=== PATIENT | male | born 1975 | race Two or more races ===

== ENCOUNTER 2022-05-13 19:02 | Inpatient (IN) | payer SELFPAY ==
[~2022-05-13] VITALS: Ht 162.6 cm; Wt 52.6 kg
--- NOTE | 2022-05-13 19:03 | NUR ---
BIBRA[address] FOR POS OD. NOTED PINPOINT PUPILS. NARCAN 2 MG AND ZOFRAN 4 MG GIVEN AT THE FIELD.
[2022-05-13] MEDS ORDERED: NALOXONE PREFILLED SYRINGE 2 MG/2 ML SYRINGE ONE ×3 (19:07→19:19)
[2022-05-13] MEDS ORDERED: IV NS 0.9% 1,000 ML BAG IV ONE ×2 (19:30→22:00)
--- NOTE | 2022-05-13 20:11 | NUR ---
ELECTRIC ORGAN INSPECTOR AND REPAIRER AT PT'S BEDSIDE
--- NOTE | 2022-05-13 20:45 | NUR ---
ATTEMPTED TO COLLECT URINE; NO URINE AT THIS TIME, WILL F/U
[2022-05-13 20:59] LABS: CALCIUM, SERUM 8.7 mg/dL (8.5-10.1); CARBON DIOXIDE 21 mmol/L (21-32); CHLORIDE 108 mmol/L (98-107); CREATININE 0.9 mg/dL (0.6-1.3); GLUCOSE 118 mg/dL (74-106); POTASSIUM 3.2 mmol/L (3.5-5.1); SODIUM SERUM 141 mmol/L (136-145); UREA NITROGEN, BLOOD 18 mg/dL (7-18)
[2022-05-13 21:03] LABS: ALANINE AMINOTRANSFERASE 15 U/L (12-78); ALBUMIN 3.1 g/dL (3.4-5.0); ALKALINE PHOSPHATASE 77 U/L (46-116); ASPARTATE AMINOTRANSFERASE 19 U/L (15-37); BILIRUBIN,DIRECT 0.1 mg/dL (0.0-0.2); BILIRUBIN,TOTAL 0.5 mg/dL (0.2-1.0); TOTAL PROTEIN, SERUM 7.4 g/dL (6.4-8.2)
[2022-05-13 21:08] LABS: ACETAMINOPHEN < 0 ug/ml (10-30); ALCOHOL, BLOOD < 3 mg/dL (0-0)
--- NOTE | 2022-05-13 21:24 | NUR ---
URINE COLLECTED AND SENT TO LAB. SMEARER AT PT'S BEDSIDE
[2022-05-13 21:52] LABS: BILIRUBIN,URINE NEGATIVE (NEGATIVE); COLOR,URINE YELLOW (YELLOW); LEUKOCYTE ESTERASE ,URINE NEGATIVE (NEGATIVE); NITRITE, URINE NEGATIVE (NEGATIVE); PH,URINE 7.5 (5.0-8.0); PROTEIN,URINE 100 mg/dl (NEGATIVE); UGLUCOSE NEGATIVE (NEGATIVE)
[2022-05-13] MEDS ORDERED: VANCOMYCIN 1 GM in IV D5W 250 ML IV ONE (22:00)
[2022-05-13] MEDS ORDERED: CEFEPIME 1 GM in IV D5W 50 ML IV ONE (22:00)
[2022-05-13] MEDS ORDERED: VANCOMYCIN 1 GM VIAL ONE (22:25)
[2022-05-13] MEDS ORDERED: CEFEPIME 1 GM VIAL ONE (22:25)
--- NOTE | 2022-05-13 22:25 | NUR ---
COVID SWAB DONE AND SENT TO LAB
[2022-05-13 22:34] LABS: WHITE BLOOD COUNT (AUTO) 8.7 K/uL (4.3-11.0)
[2022-05-13 22:35] LABS: HEMATOCRIT 24 % (39-51); HEMOGLOBIN 7.1 g/dL (13.5-17.5); MEAN CORPUSCULAR VOLUME 54 fL (80-96); RED BLOOD CELL COUNT(AUTO) 4.52 MIL/uL (4.5-6.0)
[2022-05-13 22:36] LABS: MEAN CORPUSCULAR HGB CONC 29 g/dl (31.0-36.0); PLATELET COUNT (AUTO) 846 K/uL (150-450)
[2022-05-13 22:38] LABS: LYMPHOCYTES % (AUTO) 7.2 % (20.0-44.0); MONOCYTES % (AUTO) 3.1 % (2.0-12.0); NEUTROPHILS % (AUTO) 89.5 % (43.0-81.0)
[2022-05-13 22:39] LABS: BASOPHILS % (AUTO) 0.2 % (0.0-2.0); LYMPHOCYTES # (AUTO) 0.6 K/uL (0.8-4.8); MONOCYTES # (AUTO) 0.3 K/uL (0.1-1.30); NEUTROPHILS # (AUTO) 7.8 K/uL (1.8-8.9)
[2022-05-13] MEDS ORDERED: LORAZEPAM INJ 2 MG/ML VIAL IV PRN (23:30)
[2022-05-13] MEDS ORDERED: Z GUARD REMEDY 4 OZ OINT TP PRN (23:30)
[2022-05-13] MEDS ORDERED: ACETAMINOPHEN 325 MG TABLET PO PRN (23:30)
[2022-05-13] MEDS ORDERED: MAGNESIUM HYDROXIDE 30 ML UDC PO PRN (23:30)
[2022-05-13] MEDS ORDERED: MAG HYDROX/AL HYDROX/SIMETH 30 ML UDC PO PRN (23:30)
[2022-05-13] MEDS ORDERED: ONDANSETRON HCL/PF 4 MG/2 ML VIAL IVP PRN (23:30)
--- NOTE | 2022-05-14 00:47 | NUR ---
MRSA SWAB COLLECTED AND SENT TO LAB. PATIENT'S BELONGINGS LIST DONE.
--- NOTE | 2022-05-14 01:03 | NUR ---
ROOM 116-1
--- NOTE | 2022-05-14 01:08 | NUR ---
REPORT GIVEN TO COREY JAVED RN FOR DEREK
--- NOTE | 2022-05-14 02:00 | NUR ---
PLYWOOD LAYUP LINE BACK FEEDERWAISTLINE JOINER LOCKSTITCH NOTE PT TRANSPORTED VIA GURNEY TO UNIT AT THIS TIME. PT ADMITTED TO TELE UNDER CIRCULAR CLERK DIYA FOR ADMITTING DX OF OPIATE OVERDOSE. A/O X1. PT ON 3 LPM VIA NC, O2 SAT 100%. NO SOB OR S/S OF RESPIRATORY DISTRESS. BREATHING EVEN AND UNLABORED. ON EXTERNAL PUBLICITY AGENT READING SR 74 BPM. SKIN NOTED WITH L HIP, L HAND, AND RIGHT KNEE ABRASIONS. IV ACCESS RFA 18 GAUGE, INTACT AND PATENT, RUNNING NS @125 ML/HR. ORIENTED PT TO UNIT, STAFF, AND ROOM. ALL BELONGINGS ACCOUNTED FOR AND SIGNED PT BELONGINGS LIST. SAFETY PRECAUTIONS IN PLACE. BED IN LOWEST LOCKED POSITION, HOB ELEVATED, SIDE RAILS UP X3, AND CALL LIGHT AND TABLE WITHIN REACH. ALL NEEDS MET AT THIS TIME.
--- NOTE | 2022-05-14 02:03 | NUR ---
PT TRANSFERRED TO TELLO ROOM 116-1 VIA ACLS PROTOCOL. VSS.
[2022-05-14 02:35] VITALS: BP 136/85
[2022-05-14] MEDS: PANTOPRAZOLE 40 MG VIAL IV SCH ×2 (02:43→08:21)
[2022-05-14] MEDS: IV NS 0.9% 1,000 ML IV PRN ×2 (02:43→18:24)
--- NOTE | 2022-05-14 02:43 | NUR ---
RN NOTE PT COMPLAINED OF NAUSEA. ADMINISTERED ZOFRAN 4 MG FOR NAUSEA ORDERED. PROVIDED PT WITH EMESIS BAG. ALL NEEDS MET AT THIS TIME.
[2022-05-14 04:00] VITALS: BP_SYST 126; BP_SYST 154; BP_DIAS 82; BP_DIAS 98
--- NOTE | 2022-05-14 06:59 | NUR ---
PROPERTY AND CASUALTY INSURANCE AGENT CLOSING NOTE PT RESTING IN BED. A/O X1. PT ON 3 LPM VIA NC, O2 SAT 100%. NO SOB OR S/S OF RESPIRATORY DISTRESS. BREATHING EVEN AND UNLABORED. ON EXTERNAL SPIRITUAL ADVISOR READING SR 74 BPM. IV ACCESS RFA 18 GAUGE, INTACT AND PATENT, RUNNING NS @125 ML/HR. DUE MEDS GIVEN ORDERED. SAFETY PRECAUTIONS IN PLACE AT ALL TIMES. BED IN LOWEST LOCKED POSITION, HOB ELEVATED, SIDE RAILS UP X3, AND CALL LIGHT AND TABLE WITHIN REACH. ALL NEEDS MET AT THIS TIME AND WILL ENDORSE TO ONCOMING NURSE.
--- NOTE | 2022-05-14 07:30 | NUR ---
RN OPENING NOTE PATIENT IS IN BED ASLEEP BUT EASILY AROUSABLE, A&O X 1. WITH O2 VIA NASAL CANNULA AT 3LPM, SATTING AT 100%. SINUS RHYTHM ON LINK TRAINER MAINTENANCE MAN. WITH RIGHT FOREARM GAUGE 18, INFUSING WITH NS AT 125 ML/HR. DENIES PAIN, BREATHING UNLABORED. BED IS LOCKED IN LOWEST POSITION, 3 SIDE RAILS UP, CALL LIGHT WITHIN REACH. WILL CONTINUE TO MONITOR THROUGHOUT SHIFT.
[2022-05-14 09:13] LABS: BASOPHILS % (AUTO) 0.2 % (0.0-2.0); HEMATOCRIT 25 % (39-51); LYMPHOCYTES # (AUTO) 1.1 K/uL (0.8-4.8); LYMPHOCYTES % (AUTO) 8.9 % (20.0-44.0); MEAN CORPUSCULAR HGB CONC 28 g/dl (31.0-36.0); MEAN CORPUSCULAR VOLUME 54 fL (80-96); MONOCYTES # (AUTO) 0.8 K/uL (0.1-1.30); MONOCYTES % (AUTO) 6.8 % (2.0-12.0); NEUTROPHILS % (AUTO) 84.1 % (43.0-81.0); PLATELET COUNT (AUTO) 842 K/uL (150-450); RED BLOOD CELL COUNT(AUTO) 4.59 MIL/uL (4.5-6.0); WHITE BLOOD COUNT (AUTO) 11.9 K/uL (4.3-11.0)
[2022-05-14 09:24] LABS: CALCIUM, SERUM 8.6 mg/dL (8.5-10.1); CREATININE 0.8 mg/dL (0.6-1.3); MAGNESIUM 2.7 mg/dL (1.8-2.4); PHOSPHORUS 3.8 mg/dL (2.5-4.9); POTASSIUM 3.2 mmol/L (3.5-5.1)
--- NOTE | 2022-05-14 09:35 | NUR ---
SS consult requested for homelessness and opiate drug abuse. SW will follow up at a later time.
--- NOTE | 2022-05-14 10:05 | NUR ---
SS received consult for homelessness. Pt. is alert and oriented x1, and is not interviewable. SW will follow-up once pt. is more stable.
[2022-05-14 12:15] VITALS: BP 141/72
[2022-05-14 14:25] LABS: LYMPHOCYTES % (MANUAL) 8 % (16-48); MONOCYTES % (MANUAL) 6 % (0-11.0); NEUTROPHILS % (MANUAL) 86 (42-76)
--- NOTE | 2022-05-14 18:45 | NUR ---
RN CLOSING NOTE PATIENT IS RESTING COMFORTABLY IN BED AND REMAINED STABLE THROUGHOUT THE SHIFT. DENIES PAIN AND BREATHING IS UNLABORED. IV LINE REMAINS INTACT AND PATENT. ALL HOSPITAL PRECAUTIONS IN PLACE. WILL ENDORSE TO LOSS PREVENTION REPRESENTATIVE NURSE.
--- NOTE | 2022-05-14 19:31 | NUR ---
RN NOTES RECEIVED CARE OF PATIENT FROM AM NURSE, PATIENT IN BED, ALERT TO NAME ONLY, OPENS EYES, LETHARGIC. PATIENT ON O2 THERAPY VIA NC AT 3 L/MIN, O2 SAT 99%. PATIENT ON TELE MONITOR SHOWING NSR WITH HR OF 75, NO DISTRESS NOTED ON PATIENT. WITH RIGHT FOREARM GAUGE 18, INFUSING WITH NS AT 125 ML/HR. SAFETY MEASURES INITIATED. BED IS LOCKED IN LOWEST POSITION, 3 SIDE RAILS UP, CALL LIGHT WITHIN REACH. WILL CONTINUE TO MONITOR THROUGHOUT SHIFT.
[2022-05-14 20:00] VITALS: BP 92/52
[2022-05-15] VITALS: BP 134/94
[2022-05-15] MEDS: IV NS 0.9% 1,000 ML IV PRN (03:37)
[2022-05-15 04:00] VITALS: BP 134/87
--- NOTE | 2022-05-15 06:49 | NUR ---
RN CLOSING NOTES WILL ENDORSE CARE OF PATIENT TO AM NURSE, PATIENT IN BED, SLEEPING, WAKES UP TO NAME. NO SIGNIFICANT CHANGES TO PATIENT'S CONDITION THROUGHOUT SHIFT, NO SIGNIFICANT FINDINGS UPON ALL NURSING ASSESSMENTS. ALL PATIENT'S NEEDS ATTENDED TO, ALL DUE MEDS GIVEN. SAFETY MEASURES KEPT IN PLACE. WILL ENDORSE CARE OF PATIENT TO AM NURSE FOR DEREK.
--- NOTE | 2022-05-15 07:30 | NUR ---
RN OPENING NOTE PATIENT IS IN BED, ASLEEP, BUT EASILY AROUSABLE. WITH OXYGEN VIA NASAL CANNULA T 3L/MIN, SATTING AT 95%. SINUS RHYTHM ON BELT POLISHER. WITH RIGHT FOREARM IV LINE GAUGE 18 INFUSING WITH NS AT 125 ML/HR. NOT IN ANY FORM OF DISTRESS, BREATHING UNLABORED. ALL HOSPITAL PRECAUTIONS IN PLACE, BED IS LOCKED IN LOWEST POSITION, 3 SIDE RAILS UP, CALL LIGHT WITHIN REACH. WILL CONTINUE TO MONITOR THROUGHOUT SHIFT.
--- NOTE | 2022-05-15 07:30 | NUR ---
RN OPENING NOTE PATIENT IS IN BED, ON SEMI-BUTCHER'S POSITION, OBTUNDED. WITH TRACHEOSTOMY TO MECHANICAL VENTILATOR WITH THE FOLLOWING SETTINGS: AC MODE, RR 20, TV 450, FIO2 AT 50%, PEEP 5. WITHP EG TUBE INTACT INFUSING WITH JEVITY 1.2 AT 60 ML/HR. WITH LEFT UPPER ARM MIDLINE INFUSING WITH NS AT 75 ML/HR. BREATHING IN LABOR AND NOT IN ANY FORM OF DISTRESS. BED IS LOCKED IN LOWEST POSITION, 3 SIDE RAILS UP, CALL LIGHT WITHIN REACH. WILL CONTINUE TO MONITOR THROUGHOUT SHIFT.
[2022-05-15] MEDS: PANTOPRAZOLE 40 MG TABLET.DR PO SCH (09:19)
[2022-05-15 12:20] VITALS: BP 134/84
[2022-05-15 15:20] LABS: MEAN CORPUSCULAR HGB CONC 29 g/dl (31.0-36.0)
[2022-05-15 15:38] LABS: ALBUMIN 2.6 g/dL (3.4-5.0); BILIRUBIN,TOTAL 0.3 mg/dL (0.2-1.0); CALCIUM, SERUM 8.1 mg/dL (8.5-10.1); CREATININE 0.6 mg/dL (0.6-1.3); MAGNESIUM 2.3 mg/dL (1.8-2.4); PHOSPHORUS 2.8 mg/dL (2.5-4.9); POTASSIUM 3.3 mmol/L (3.5-5.1)
[2022-05-15 16:03] LABS: BASOPHILS # (AUTO) 0.1 K/uL (0.0-0.2); BASOPHILS % (AUTO) 0.6 % (0.0-2.0); HEMATOCRIT 22 % (39-51); LYMPHOCYTES # (AUTO) 1.1 K/uL (0.8-4.8); LYMPHOCYTES % (AUTO) 12.4 % (20.0-44.0); MEAN CORPUSCULAR VOLUME 54 fL (80-96); MONOCYTES # (AUTO) 0.6 K/uL (0.1-1.30); MONOCYTES % (AUTO) 7.1 % (2.0-12.0); NEUTROPHILS # (AUTO) 7.1 K/uL (1.8-8.9); NEUTROPHILS % (AUTO) 79.9 % (43.0-81.0); PLATELET COUNT (AUTO) 724 K/uL (150-450); RED BLOOD CELL COUNT(AUTO) 4.09 MIL/uL (4.5-6.0); WHITE BLOOD COUNT (AUTO) 8.9 K/uL (4.3-11.0)
--- NOTE | 2022-05-15 16:12 | NUR ---
SS consult: SS Consult requested for possible overdose. The pt. is a 46-year-old male patient who came into ED due to possible overdose per EMR. Per EMR, pt. was found unresponsive in the street Per EMR, pt. was administered 2 mg of Narcan by paramedics. Upon SS consult, the pt. is Alert & Oriented x 4 and makes avoidant eye contact. The pt. appears disheveled. Pt.s speech is within normal limits. Per pt. he refused to participate in interview and gave minimal information to assist with his discharge planning. Pt. states he uses meth and Heroin at times. This drug abuse social worker provided support with motivational interviewing, along with education regarding opioid dependence, brief intervention and referral to treatment. SW offered pt. addiction resources and the following medication assisted treatment and pt. accepted them: [facility]: [address] [place] [address] Intake hours: 5:45am9:00am, walk-ins Thursday, Thursday, [facility]: [address] [place] [address] Intake hours: 5:45am12:30pm, Thursday and [facility]: [address] [place] [address] Intake hours: 8:00am2:00pm, Thursday through Thursday Pt. is in the pre-contemplation phase of change. SW explored pt.s living situation. Patient states he is experiencing homelessness and would like fci placement. SW explored pt.s mental health Hx. refused to answer. SW provided resources for homelessness and pt. accepted them. Pt. refused to discuss if he has tried MAT in the past. Per pt. he is ambulatory and independent with all his ADLs. SW explored pt.s support system. Pt. refused to discuss support system. Plan: Pt. refused to sign homeless waiver and it was placed in the chart. SW provided MET and other addiction resources as well and mental health and homeless resources and pt. accepted them. JESSY discusses DC plan with pt.s nurse. Pt. provided directions to the [facility] shelters for him to do a walk in: [facility] Crisis Housing Program Adults program - Open [address] [employer] [employer] [place] [facility] [place] [address] [place] [address] ; [facility] [place] [address] [place] [address]; Year-round shelters: [place] [address] [place] [address] ; [facility] [place] [address] [place] [address]; [place] [facility] [address] [facility] [address] Hygiene: [facility]: [address] [place] ; [place] [facility] [address] [facility] ; [facility] [address] [facility] . Food Resources: [place] [facility] at [facility]- [address] [facility]. [place]; Meet Each Need with Dignity (MEND) [address] [facility]; [facility] [address] [facility]; [facility] [address] [facility]. Mental Health resources provided: [facility] [address] [place], [place] [phone] ; [facility] [address] [facility] [address], [place], [place] [phone] ; Brissa Iqbal [facility] [address] [place] [address] ; [facility] [address] [place], [place] [phone] Healthcare Clinics: [facility] [address] [facility], [address] [place]. [place] ; [facility] [address] [facility] [address] [place] [address]; [facility] [address] [facility]. [place] [phone] Counseling--Outpatient [facility] [address], [address] [place], [place] [address] (Specializes in in-depth psychotherapy for emotional distress: anxiety, depression, interpersonal conflicts, life transitions, childhood abuse) [facility] [address] [place], [place] [phone] (Assist with solving problem marital difficulties, separation & divorce, aging parents, & grief, chronic & terminal illness) [facility] [address] [place] [address] (Deal with loss & grief, anxiety, marital difficulties) Homebound/Mental Health Services [address] [facility] [address] [place] [address] (Provide in-home mental services to people who are incapable of leaving their homes) [facility] [address] [place] [address] [facility] [address] [place], [place] [address] PSYCHIATRIC OUTPATIENT SERVICES [facility] Partial Hospitalization and Intensive Outpatient Program (Managed Care and [place] Only)[address] [facility] [phone] [facility] Partial Hospitalization and Outpatient Aqbsgib[address] [place] [facility] [address] [place], [place] [phone] [facility] Mental Health [place] [id number] [facility] [address] [place], [place] [phone] [facility] Partial Hospitalization and Outpatient Oqvylib[address] [place], [phone] Substance Abuse resources provided included: [facility] [place] [facility] Substance Abuse Self-Helpline (SAS) ; [facility] [address] [facility] [place]. [place] [address] ; [facility] [address] [facility] [address] ; [facility] Rehabilitation [facility] [address] [place] [address] [facility] [address] ; [facility] [address] [facility] [address] ; [facility] [address] [facility] [address] ; [facility] [place] [address] [phone] ; [facility] Substance Abuse Helpline(SAS)[facility] ; [facility] ; [facility] [place]; [facility] [place]; [facility] [place]; [facility] [address]; [facility] [place]; [facility] [place]; [facility] [place]; [facility]. Plaza; Alcoholics Anonymous -SFV; Cz-Ldsv-Xagxeay ; Marijuana Anonymous -SFV; Narcotics Anonymous www.na.org;
[2022-05-15 16:34] LABS: HEMOGLOBIN 6.3 g/dL (13.5-17.5)
[2022-05-15 17:33] LABS: LYMPHOCYTES % (MANUAL) 13 % (16-48); MONOCYTES % (MANUAL) 2 % (0-11.0); NEUTROPHILS % (MANUAL) 85 (42-76)
--- NOTE | 2022-05-15 18:58 | NUR ---
RN CLOSING NOTE PATIENT IS RESTING COMFORTABLY IN BED AND REMAINED STABLE THROUGHOUT SHIFT. DENIES PAIN, BREATHING UNLABORED AND NOT IN ANY FORM OF DISTRESS. LEFT IV LINE INTACT AND PATENT. BED IS LOCKED IN LOWEST POSITION, 3 SIDE RAILS UP, CALL LIGHT WITHIN REACH. WILL ENDORSE TO DRAWING FRAME TENDER NURSE.
--- NOTE | 2022-05-15 19:30 | NUR ---
RN OPENING NOTE PATIENT IS IN BED, ASLEEP, BUT EASILY AROUSABLE. A&OX2 WITH OXYGEN VIA NASAL CANNULA T 3L/MIN, SATTING AT 100%. SINUS RHYTHM ON FINANCIAL COMPLIANCE MANAGER. WITH LEFT FOREARM IV LINE GAUGE 18 INFUSING WITH NS AT 125 ML/HR. NOT IN ANY FORM OF DISTRESS, BREATHING UNLABORED. ALL HOSPITAL PRECAUTIONS IN PLACE, BED IS LOCKED IN LOWEST POSITION, 3 SIDE RAILS UP, CALL LIGHT WITHIN REACH. WILL CONTINUE TO MONITOR THROUGHOUT SHIFT
[2022-05-15 20:00] VITALS: BP 128/79
--- NOTE | 2022-05-15 20:45 | NUR ---
SECURITY TECH NOTE PATIENT HAD BM, AGUS CARE PROVIDED AND BEDDING CHANGE. SIDE RAILS UP X3 AND ALL LIGHT WITHIN REACH. PATIENT STATED HE WAS STILL EATING HIS DINNER, APPLE JUICE AND GEORGE CRACKERS WERE PROVIDED WELL.
[2022-05-15 23:08] VITALS: BP 118/75
[2022-05-15 23:35] VITALS: BP 133/73
[2022-05-16 00:05] VITALS: BP 133/73
--- NOTE | 2022-05-16 00:05 | NUR ---
SHEET METAL SUPERVISOR NOTE BLOOD TRANSFUSION STARTED AT 2308, VITAL SIGNS TAKEN AND RECORDED, NO BLOOD TRANSFUSION REACTION NOTED AT THIS TIME.
[2022-05-16 00:35] VITALS: BP 130/80
[2022-05-16 01:35] VITALS: BP 119/69
--- NOTE | 2022-05-16 01:35 | NUR ---
COMPENSATION CONSULTING MANAGER NOTE BLOOD TRANSFUSION OMPLETED AT 0135, VITAL SIGNS TAKEN AND RECORDED, NO BLOOD TRANSFUSION REACTION NOTED AT THIS TIME.
[2022-05-16 04:00] VITALS: BP 136/80
[2022-05-16] MEDS: IV NS 0.9% 1,000 ML IV PRN (05:43)
--- NOTE | 2022-05-16 06:35 | NUR ---
FACILITIES AND GROUNDS DIRECTOR CLOSING NOTE PATIENT IS RESTING COMFORTABLY IN BED AND REMAINED STABLE THROUGHOUT SHIFT. DENIES PAIN, BREATHING UNLABORED AND NOT IN ANY FORM OF DISTRESS. RIGHT IV LINE INTACT AND PATENT. BED IS LOCKED IN LOWEST POSITION, 3 SIDE RAILS UP, CALL LIGHT WITHIN REACH. WILL ENDORSE TO DAY SHIFT NURSE.
--- NOTE | 2022-05-16 07:54 | NUR ---
UTILIZATION REVIEW NURSE OPENING NOTES RECEIVED PATIENT IN BED, ASLEEP, BUT EASILY AWAKEN. PATIENT IS A/OX2 WITH OXYGEN VIA NASAL CANNULA AT 3L/MIN; NO S/S OF RESPIRATORY DISTRESS NOTED. TELE MONITOR WITH A READING OF SR 69 BPM. LFA IV LINE G# 18 RUNNING NS AT 125 ML/HR. NO S/S OF PAIN. SAFETY PRECAUTIONS IN PLACE; BED IN LOW POSITION AND LOCKED; RAILS UP X2, CALL LIGHT WITHIN REACH. WILL CONTINUE TO MONITOR PATIENT.
[2022-05-16] MEDS: PANTOPRAZOLE 40 MG TABLET.DR PO SCH (08:28)
[2022-05-16 11:45] LABS: BASOPHILS # (AUTO) 0.1 K/uL (0.0-0.2); BASOPHILS % (AUTO) 0.7 % (0.0-2.0); EOSINOPHILS % (AUTO) 0.4 % (0.0-6.0); HEMATOCRIT 26 % (39-51); LYMPHOCYTES # (AUTO) 1.8 K/uL (0.8-4.8); LYMPHOCYTES % (AUTO) 18.2 % (20.0-44.0); MEAN CORPUSCULAR HGB CONC 30 g/dl (31.0-36.0); MEAN CORPUSCULAR VOLUME 58 fL (80-96); MONOCYTES # (AUTO) 0.8 K/uL (0.1-1.30); MONOCYTES % (AUTO) 7.8 % (2.0-12.0); NEUTROPHILS # (AUTO) 7.2 K/uL (1.8-8.9); NEUTROPHILS % (AUTO) 72.9 % (43.0-81.0); PLATELET COUNT (AUTO) 656 K/uL (150-450); WHITE BLOOD COUNT (AUTO) 9.8 K/uL (4.3-11.0)
[2022-05-16 11:55] LABS: HEMOGLOBIN 7.7 g/dL (13.5-17.5)
[2022-05-16 12:08] VITALS: BP 143/76
--- NOTE | 2022-05-16 12:26 | NUR ---
ms rn note pt eval done pt eval patient very week, needs max biology laboratory assistant with adls unable to make any steps to walk
--- NOTE | 2022-05-16 14:08 | NUR ---
ms rn note spoke with dr arroyo notified that pt unable to ambulate stated ask heel caser for or placement
--- NOTE | 2022-05-16 18:54 | NUR ---
ELECTRONICS DESIGN ENGINEER CLOSING NOTES PATIENT REMAINS IN BED, RESTING, BUT EASILY AWAKEN. PATIENT IS A/OX2 WITH OXYGEN VIA NASAL CANNULA AT 3L/MIN; NO S/S OF RESPIRATORY DISTRESS NOTED DURING SHIFT. LFA IV LINE G# 18 RUNNING NS AT 125 ML/HR. NO S/S OF PAIN DURING THE DAY. ALL NEEDS ATTENDED DURING THE DAY. SAFETY PRECAUTIONS IN PLACE; BED IN LOW POSITION AND LOCKED; RAILS UP X2, CALL LIGHT WITHIN REACH. WILL ENDORSE TO UROLOGIST NURSE FOR DEREK.
--- NOTE | 2022-05-16 19:10 | NUR ---
RN NOTES RECEIVED REPORT FROM MORNING RN. PATIENT IN BED A/O X2 ABLE TO MAKE NEEDS KNOWN. WITH OXYGEN INHALATION AT 2 LPM VIA NASAL CANULA TOLERATING WELL SATING 99%. NO SOB NO DISTRESS NOTED AT THIS TIME. ALL SAFETY MEASURES IN PLACE AT ALL TIMES. BED ON LOWEST POSITION AND LOCKED. WILL CLOSELY MONITOR THE PATIENT
[2022-05-16 20:00] VITALS: BP 128/84
[2022-05-17 04:00] VITALS: BP 120/80
--- NOTE | 2022-05-17 06:52 | NUR ---
RN NOTES PATIENT REMAINS IN BED, RESTING, BUT EASILY AWAKEN. PATIENT IS A/OX2 WITH OXYGEN VIA NASAL CANNULA AT 3L/MIN; NO S/S OF RESPIRATORY DISTRESS NOTED DURING SHIFT. LFA IV LINE G# 18 RUNNING NS AT 125 ML/HR. NO S/S OF PAIN DURING THE DAY. ALL NEEDS ATTENDED DURING THE DAY. SAFETY PRECAUTIONS IN PLACE; BED IN LOW POSITION AND LOCKED; RAILS UP X2, CALL LIGHT WITHIN REACH. WILL ENDORSE TO RAILWAY SHUNTER NURSE FOR DEREK.
--- NOTE | 2022-05-17 07:30 | NUR ---
RN NOTES PT FOUND SUPINE DISPLAYING NO S/S OF DISTRESS, PT ENDORSES NO PAIN AND IS BREATHING EVEN AND UNLABORED ON 3L O2 NC. R FA 22G IS PATIENT AND INTACT. PT ABLE TO FOLLOW COMMANDS, CALM AND COOPERATIVE. RN WILL CONTINUE CARE PLAN AND ANTICIPATE NEEDS. SAFETY MEASURES IN PLACE, BED LOCKED AND IN LOWEST POSITION, SIDE RAILS UPX2, CALL LIGHT WITHIN REACH, BED ALARM ARMED.
[2022-05-17] MEDS ORDERED: POTASSIUM CHLORIDE 20 MEQ TAB.PRT.SR PO ONE (08:30)
[2022-05-17] MEDS: PANTOPRAZOLE 40 MG TABLET.DR PO SCH (09:04)
--- NOTE | 2022-05-17 10:00 | NUR ---
RN NOTE PT STATED HE WANTED TO LEAVE. PT IS A&OX4, ABLE TO AMBULATE W/O ASSISTANCE. PT WITNESSED PT ABILITY TO RISE FROM BED W/O ASSISTANCE AND AMBULATE. PT RECOMMENDED CANE FOR STABILITY. RN PROCURED CANE. PT SIGNED AMA FORM. HOMELESS WAIVER SIGNED. NOTIFIED. PT REQUESTED LOCATION OF [facility], RN PROVIDED INSTRUCTIONS.
== END 2022-05-17 10:00 | disposition left against medical advice (07) | DRG 917 ==
LOC: EDBD 21:36 → ER 21:36 → TELE1 05-14 01:05 → MEDSG1 05-16 09:41
PROC: 30233N1 Transfusion of Nonautologous Red Blood Cells into Peripheral Vein, Percutaneous Approach (ICD-10-PCS; principal; 2022-05-15)
DX: T40.2X1A Poisoning by other opioids, accidental (unintentional), initial encounter (principal); G92.8 Other toxic encephalopathy; E44.1 Mild protein-calorie malnutrition; Y92.89 Other specified places as the place of occurrence of the external cause; Z59.00 Homelessness unspecified; D75.839 Thrombocytosis, unspecified; D72.829 Elevated white blood cell count, unspecified; Z20.822 Contact with and (suspected) exposure to COVID-19; D57.40 Sickle-cell thalassemia without crisis; E88.09 Other disorders of plasma-protein metabolism, not elsewhere classified; F17.200 Nicotine dependence, unspecified, uncomplicated; E87.6 Hypokalemia; R79.89 Other specified abnormal findings of blood chemistry
CPT/HCPCS: 36415; 70450-TC; 71045-TC; 80048-TC; 80053-TC; 80076-TC; 83605-TC; 83735-TC; 84100-TC; 84484-TC; 85025-TC; 85045-TC; 85652-TC; 86850-TC; 87040-TC; 87081-TC; 94799-TC; 97530-TC; C9113; C9803; G0378; G0480; J0692; J2310; J2405; J3370; J7030; J7050; J7060; P9016